=== PATIENT | female | born 1975 | race Caucasian/White ===

== ENCOUNTER 2022-10-15 07:36 | Outpatient (CLI) | payer BC, SELFPAY | END 2022-10-15 07:37 | disposition home or self-care (01) | LOC: NFLDREF 21:27 | PROVIDERS: PCP Physician Assistant Medical; Referring Provider Physician Assistant Medical; Visit Provider Physician Assistant Medical | DX: Z00.00 Encounter for general adult medical examination without abnormal findings (principal); I10 Essential (primary) hypertension; Z13.6 Encounter for screening for cardiovascular disorders; Z13.29 Encounter for screening for other suspected endocrine disorder | CPT/HCPCS: 80053; 80061; 84443 ==

== ENCOUNTER 2022-11-22 06:25 | Outpatient (CLI) | payer BC, SELFPAY ==
[2022-11-22 06:45] LABS: Ur HCG Qualitative* Negative (Negative)
--- NOTE | 2022-11-22 06:45 | P.ANHP_ITS ---
HPI - Pre-Anesthesia History of Present Illness Time Seen by Provider: 06:45 Date Seen: 11/22/22 Date of service: 11/22/22 Reason for visit: preop for screening colonoscopy Source: patient, RN notes reviewed and old records reviewed Review of Systems Status of ROS Reports: 10 or more systems reviewed and unremarkable except as noted in History and below [facility] Medical History (Updated 11/22/22 @ 06:46 by Alexandr Juarez MD) Family history of cardiovascular disease ?Z82.49 - Family history of ischemic heart disease and other diseases of the circulatory system (ICD-10) Recurrent pneumonia ?J18.9 - Pneumonia, unspecified organism (ICD-10) Surgical History (Updated 10/18/22 @ 10:57 by Martha Morrissey PA-C) History of wisdom tooth extraction, class I edentulism ?K08.491 - Partial loss of teeth due to other specified cause, class I (ICD- 10) History of appendectomy ?Z90.49 - Acquired absence of other specified parts of digestive tract (ICD- 10) Family History (Updated 10/14/22 @ 16:41 by Sierra Phoenix) Father High blood pressure Myocardial infarction, Onset Age: 58 Maternal Grandmother High blood pressure Mother Myocardial infarction, Onset Age: 60 Social History (Updated 10/14/22 @ 16:41 by Sierra Phoenix) Narrative: IUD (intrauterine device) in place Smoking Status: Never smoker Little interest or pleasure in doing things: not at all Feeling down, depressed, or hopeless: not at all Meds Home Medications and Allergies Home Medications Medication Instructions Recorded Confirmed Type levonorgestrel 21 mcg/24 hours (8 1 intrauterine ONCE 10/18/22 10/18/22 History yrs) 52 mg intrauterine device Allergies Allergy/AdvReac Type Severity Reaction Status Date / Time pollens Allergy Mild congestion Uncoded 10/18/22 10:12 Exam Const Documenting provider has reviewed patient's vital signs: yes Common normals: no apparent distress, oriented x3, healthy appearing, alert and well nourished General appearance: cooperative and comfortable Orientation/consciousness: Yes awake HENMT Common normals: normocephalic Head and scalp: normocephalic Neck & C-Spine Common normals: full ROM Chest Chest: symmetrical chest wall rise Resp Common normals: normal respiratory effort, no retractions, no use of accessory muscles and clear to auscultation bilaterally Auscultation: clear to auscultation bilaterally Cardio Common normals: regular rate, regular rhythm, S1 normal heart sound, S2 normal heart sound and no murmurs Rate: regular rate Rhythm: regular rhythm Heart sounds: S1 normal and S2 normal Neuro Common normals: oriented x3 Sensorium/orientation: awake and alert Assessment and Plan Assessment and plan (1) Encounter for screening colonoscopy: Status: Acute Plan no contraindication to sedation for screening colonoscopy
--- NOTE | 2022-11-22 06:45 | W.ANESCHARGE ---
Anesthesia Charges Start Date/Time Anesthesia Start Date: 11/22/22 Anesthesia Start Time: 07:00 Stop Date/Time Anesthesia Stop Date: 11/22/22 Anesthesia Stop Time: 07:30
--- NOTE | 2022-11-22 07:39 | W.ANESCHARGE ---
Anesthesia Charges Start Date/Time Anesthesia Start Date: 11/22/22 Anesthesia Start Time: 07:00 Stop Date/Time Anesthesia Stop Date: 11/22/22 Anesthesia Stop Time: 07:30
== END 2022-11-22 06:26 | disposition home or self-care (01) ==
LOC: OP CLINIC 06:25
PROVIDERS: PCP Physician Assistant Medical; Visit Provider Internal Medicine
DX: Z12.11 Encounter for screening for malignant neoplasm of colon (principal); K64.8 Other hemorrhoids; K63.5 Polyp of colon
CPT/HCPCS: 45380; 81025; 811; 812; 88305; J2704

== ENCOUNTER 2023-01-17 09:04 | Outpatient (CLI) | payer BC, SELFPAY ==
--- NOTE | 2023-01-17 09:15 | CRLHL7_ITS ---
For Patients: As a result of the Century Cures Act, medical imaging exams and procedure reports are released immediately into your electronic medical record. You may view this report before your referring provider. If you have questions, please contact your health care provider. BILATERAL SCREENING MAMMOGRAM WITH COMPUTER-AIDED DETECTION AND TOMOSYNTHESIS TECHNIQUE: CC and MLO views were obtained. These mammographic images have been obtained using full-field digital technique. These mammographic images were interpreted with the benefit of computer-aided detection. Breast Tomosynthesis was used in this interpretation. COMPARISON FILM: 08/22/20, 05/25/19, 02/04/18. FINDINGS: The breasts are heterogeneously dense, which may obscure small masses IMPRESSION: There is no radiographic evidence for malignancy. ASSESSMENT: BI-RADS Category 1: Negative RECOMMENDATION: Routine screening mammogram in 1 year. A lay language report of this examination will be provided to the patient. Tee Matos M.D. Diagnostic Radiologist [email or web address] MARIELOS/Dictated by: Tee Matos MD @ 01/17/2023 10:00:00 AM (Electronically Signed)
== END 2023-01-17 09:05 | disposition home or self-care (01) ==
LOC: MAMMO 09:05
PROVIDERS: PCP Physician Assistant Medical; Visit Provider Physician Assistant Medical
DX: Z12.31 Encounter for screening mammogram for malignant neoplasm of breast (principal); R92.2 Inconclusive mammogram
CPT/HCPCS: 77063; 77067

== ENCOUNTER 2024-01-28 10:24 | Outpatient (CLI) | payer BC, SELFPAY | END 2024-01-28 10:25 | disposition home or self-care (01) | PROVIDERS: PCP Physician Assistant Medical; Visit Provider Physician Assistant Medical | DX: Z00.00 Encounter for general adult medical examination without abnormal findings (principal); I10 Essential (primary) hypertension; Z13.6 Encounter for screening for cardiovascular disorders; Z13.29 Encounter for screening for other suspected endocrine disorder | CPT/HCPCS: 80053; 80061; 84443 ==

== ENCOUNTER 2024-04-22 15:36 | Outpatient (CLI) | payer BC, SELFPAY ==
--- NOTE | 2024-04-22 15:40 | CRLHL7_ITS ---
For Patients: As a result of the Century Cures Act, medical imaging exams and procedure reports are released immediately into your electronic medical record. You may view this report before your referring provider. If you have questions, please contact your health care provider. BILATERAL SCREENING MAMMOGRAM WITH COMPUTER-AIDED DETECTION AND TOMOSYNTHESIS TECHNIQUE: CC and MLO views were obtained. These mammographic images have been obtained using full-field digital technique. These mammographic images were interpreted with the benefit of computer-aided detection. Breast tomosynthesis was used in this interpretation. COMPARISON FILM: 01/17/23, 08/22/20, 05/25/19. FINDINGS: The breasts are heterogeneously dense, which may obscure small masses. IMPRESSION: There is no radiographic evidence for malignancy. ASSESSMENT: BI-RADS Category 1: Negative RECOMMENDATION: Routine screening mammogram in 1 year. A lay language report of this examination will be provided to the patient. TEE BOO M.D. Diagnostic Radiologist [email or web address] NAVYA/[email or web address] Transcribed: 04/29/2024, 4:[address]/Dictated by: Tee Boo MD @ 04/29/2024 10:51:00 AM (Electronically Signed)
== END 2024-04-22 15:37 | disposition home or self-care (01) ==
LOC: MAMMO 15:37
PROVIDERS: PCP Physician Assistant Medical; Visit Provider Physician Assistant Medical
DX: Z12.31 Encounter for screening mammogram for malignant neoplasm of breast (principal); R92.333 Mammographic heterogeneous density, bilateral breasts
CPT/HCPCS: 77063; 77067

== ENCOUNTER 2025-05-18 08:11 | Outpatient (CLI) | payer BC, SELFPAY | END 2025-05-18 08:12 | disposition home or self-care (01) | LOC: NFLDREF 05-23 12:00 | PROVIDERS: PCP Physician Assistant Medical; Referring Provider Physician Assistant Medical; Visit Provider Physician Assistant Medical | DX: Z00.00 Encounter for general adult medical examination without abnormal findings (principal) | CPT/HCPCS: 80053; 80061; 84443 ==